=== PATIENT | male | born 1990 | race Hispanic/Latino ===

== ENCOUNTER 2022-08-03 11:06 | Emergency (ER) | payer SELFPAY ==
[~2022-08-03] VITALS: Ht 175.3 cm; Wt 148.1 kg
[2022-08-03] MEDS ORDERED: GUAIFENESIN-CO118 ML PO (12:04)
[2022-08-03] MEDS ORDERED: IBUPROFEN600 MG PO (12:07)
== END 2022-08-03 12:20 | disposition home or self-care (01) ==
LOC: FSED 11:32
DX: R05.9 Cough, unspecified (principal); J06.9 Acute upper respiratory infection, unspecified; B34.9 Viral infection, unspecified; E66.9 Obesity, unspecified
CPT/HCPCS: 83518; 87400; 99283